=== PATIENT | male | born 1960 | race Caucasian/White ===

== ENCOUNTER 2017-08-22 06:20 | Day surgery (SDC) | payer BC ==
[2017-08-22] MEDS ORDERED: Lactated Ringers 1,000 ML IV SCH (07:00)
[2017-08-22] MEDS ORDERED: Midazolam 1 MG/ML 2 ML SDV ONE (07:24)
[2017-08-22] MEDS ORDERED: Propofol 200 MG/20 ML SDV ONE ×2 (07:24→07:44)
[2017-08-22] MEDS ORDERED: fentaNYL 100 MCG/2 ML SDV ONE (07:24)
--- NOTE | 2017-08-22 12:09 | OR ---
DATE OF PROCEDURE: 08/22/2017 PREOPERATIVE DIAGNOSIS: Strong family history of colon cancer in father and mother. POSTOPERATIVE DIAGNOSES: 1. Diverticulosis. 2. Strong family history of colon cancer in father and mother. PROCEDURE: Colonoscopy to the cecum. SURGEON: Galen Henao MD. ANESTHESIA: IV anesthesia with monitored anesthesia care. INDICATION: This 57-year-old white male is here for a colonoscopy because of a strong family history of colon cancer. Both his father and mother had colon cancer. He says his last colonoscopic exam was done six years ago. I counseled him for the procedure including risks and alternatives, and he gave his informed consent to proceed. DESCRIPTION OF PROCEDURE: The patient was placed in the left lateral decubitus position. IV anesthesia was administered by the Anesthesia Service. Time-out was held. A rectal exam was performed, which was unremarkable. The flexible video Olympus colonoscope was introduced through his anus, up his rectum, and out his colon all the way to the cecum. En route, we saw a single diverticulum in the left colon. Once the cecum was reached, the scope was slowly withdrawn, examining the mucosa throughout. No additional mucosal abnormalities were noted. No neoplastic lesions were seen. The scope was retroflexed in the rectum with the distal rectum appearing unremarkable. The scope was straightened and removed. He tolerated the procedure well. Galen Henao MD /[id number] MTDD
== END 2017-08-22 08:57 | disposition home or self-care (01) ==
LOC: JP.SDS 06:20
PROVIDERS: ATTEND Surgery
DX: Z12.11 Encounter for screening for malignant neoplasm of colon (principal); K57.30 Diverticulosis of large intestine without perforation or abscess without bleeding; Z80.0 Family history of malignant neoplasm of digestive organs
CPT/HCPCS: 45378; J2250; J2704; J3010; J7120

== ENCOUNTER 2021-03-10 04:59 | Emergency (ER) | payer BC ==
--- NOTE | 2021-03-10 05:39 | EDM.PDOC ---
ED HPI GENERAL MEDICAL PROBLEM - General Chief Complaint: Genitourinary Problem Stated Complaint: BLADDER PROBLEMS Time Seen by Provider: 03/10/21 05:10 Source of Information: Reports: Patient History Limitations: Reports: No Limitations - History of Present Illness INITIAL COMMENTS - FREE TEXT/NARRATIVE: Patient presents emergency room today secondary to inability to void and pelvic pain bladder spasms pressure. Patient states that symptoms started around 1 30- 2 30 this morning he had a urge to go at least 8 times that he knows of but he could not to try to take a hot bath around 230 to see if that helps around 330 he went to bed but was only able to sleep for about an hour woke up around 430 with increasing pain inability to void so he came to the emergency room for further evaluation. Patient states that he has had an ultrasound-guided prostate biopsy yesterday he has had 3 previous to this without any problem no history of a cancer diagnosis he states that he has been followed by urology regarding this situation he had MRI in January which found some nodules and finally decided on the prostate biopsy he is followed by Dr. Kaushik Borrero urology in [place] with [facility] he rates pain is a 10 out of 10 sharp spasms in nature. He states prior to 130 he is not sure how much she was voiding but at least he was able to void. 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: Other (see below) (hot bath, taking levofloxicin for UTI prophalaxis 2/2 prostate biopsy yesterday) Bladder Pain Score (Numeric/FACES): 10 - Related Data Allergies Allergy/AdvReac Type Severity Reaction Status Date / Time No Known Allergies Allergy Verified 03/10/21 05:25 Home Meds: Home Meds atorvaSTATin [Lipitor] 20 mg PO DAILY 08/18/17 [History] Levofloxacin 500 mg PO DAILY 03/10/21 [History] Past Medical History HEENT History: Reports: Impaired Vision Other HEENT History: Wears glasses Cardiovascular History: Reports: High Cholesterol Genitourinary History: Reports: Other (See Below) Other Genitourinary History: Has had elevated PSA, 3 biopsy's done. Musculoskeletal History: Reports: Other (See Below) Other Musculoskeletal History: L knee pain- cortisone injection - Infectious Disease History Infectious Disease History: Reports: Chicken Pox, Measles, Mumps - Past Surgical History GI Surgical History: Reports: Colonoscopy Male Surgical History: Reports: Prostate Biopsy Social & Family History - Tobacco Use Tobacco Use Status *Q: Never Tobacco User - Caffeine Use Caffeine Use: Reports: Tea - Recreational Drug Use Recreational Drug Use: No ED ROS GENERAL - Review of Systems Review Of Systems: Comprehensive ROS is negative, except as noted in HPI. Constitutional: Reports: No Symptoms. Denies: Fever, Chills GI/Abdominal: Reports: Abdominal Pain. Denies: Nausea, Vomiting : Reports: Frequency, Pain, Urinary Retention ED EXAM, RENAL/ - Physical Exam Exam: See Below Exam Limited By: No Limitations General Appearance: Alert, WD/WN, Moderate Distress Eye Exam: Bilateral Eye: EOMI, Normal Inspection Ears: Normal External Exam, Hearing Grossly Normal Throat/Mouth: Normal Voice, No Airway Compromise Head: Atraumatic, Normocephalic Neck: Supple, Full Range of Motion Respiratory/Chest: Lungs Clear, Normal Breath Sounds Cardiovascular: Regular Rate, Rhythm, No Edema, No Murmur GI/Abdominal: Normal Bowel Sounds, Soft, Non-Tender (post morales insertion for acute urinary retension) (Male) Exam: Normal Inspection, Circumcised Rectal (Males) Exam: Deferred Back Exam: Normal Inspection Extremities: Normal Inspection, Normal Range of Motion, No Pedal Edema, Normal Capillary Refill Neurological: Alert, Oriented, Normal Cognition, No Motor/Sensory Deficits Psychiatric: Normal Affect, Normal Mood Skin Exam: Warm, Dry, Intact, Normal Color Course - Vital Signs Text/Narrative:: Discussed with patient and spouse at bedside today's ER findings to include home care that will involve continuation of Morales catheter that was placed here in the emergency room did discuss large bag versus leg bag use. Recommendation is to contact urologist in the morning for urology follow-up anticipate that Morales will remain in place for approximately 1 week in duration before attempted removal is recommended. We will provide him with Pyridium for bladder spasms/discomfort although he states he is quite comfortable now I did encourage that he go ahead and take prescription in case he needs it at a future time. Work excuse was given this time patient is ready for discharge Last Recorded V/S: Last Vital Signs Temp 98.2 F 03/10/21 05:21 Pulse 73 03/10/21 05:21 Resp 18 12 05:21 BP 138/77 03/10/21 05:21 Pulse Ox 98 03/10/21 05:21 Departure - Departure Time of Disposition: 05:42 Disposition: DC/Tfer to Hospice - Home 50 Condition: Good Clinical Impression: Acute urinary retention, History of prostate biopsy - Discharge Information *PRESCRIPTION DRUG MONITORING PROGRAM REVIEWED*: Not Applicable *COPY OF PRESCRIPTION DRUG MONITORING REPORT IN PATIENT REMA: Not Applicable Instructions: Acute Urinary Retention, Male, [id number], Indwelling Urinary Catheter Care, Adult, [id number] Referrals: Pipe Harp MD [Primary Care Provider] - Additional Instructions: As discussed it is recommended that you contact your urologist today regarding imtiaz's ER visit to notify them of diagnosis of acute urinary retention and placement of Morales catheter. Continue with levofloxacin as currently prescribed no changes have been made in the emergency room regarding this antibiotic You have been provided a prescription for Pyridium which is a bladder anesthetic this will help with any bladder spasms or pain you may have related to Morales catheter insertion. You may use 1 tablet every 8 hours as needed for bladder pain/spasms. Please note that will change her urine to an orange color this does stain permanently Home Morales care as directed by PHLEBOTOMIST as well as handout provided you may shower normally Morales in place Sepsis Event Note (ED) - Evaluation Sepsis Screening Result: No Definite Risk - Focused Exam Vital Signs: Vital Signs Temp Pulse Resp BP Pulse Ox 03/10/21 05:21 98.2 F 73 18 138/77 98
[2021-03-10] MEDS ORDERED: Phenazopyridine 95 MG Tab PO ONE (05:48)
== END 2021-03-10 06:24 | disposition home or self-care (01) ==
LOC: JP.ED 04:59
DX: R33.9 Retention of urine, unspecified (principal); E78.00 Pure hypercholesterolemia, unspecified; Z79.899 Other long term (current) drug therapy
CPT/HCPCS: 51702; 99284; A9270

== ENCOUNTER 2021-03-16 20:44 | Observation (INO) | payer BC ==
[2021-03-16] MEDS ORDERED: Sodium Chloride 0.9% 10 ML Syringe FLUSH PRN (21:21)
[2021-03-16] MEDS ORDERED: Lactated Ringers 1,000 ML IV SCH ×2 (21:30→23:45)
--- NOTE | 2021-03-16 22:16 | EDM.PDOC ---
ED HPI GENERAL MEDICAL PROBLEM - General Chief Complaint: General Stated Complaint: POST BIOSPY, BLADDER INFECTION,FEVER Time Seen by Provider: 03/16/21 21:21 Source of Information: Reports: Patient History Limitations: Reports: No Limitations - History of Present Illness INITIAL COMMENTS - FREE TEXT/NARRATIVE: Kwasi is a 60-year-old male presenting to the ED for evaluation of febrile illness, nausea, diarrhea, and generally not feeling well. The patient underwent a prostate biopsy in [place] 7 days ago complicated by urinary retention which he was seen for the next morning he in the emergency room here. A Woody catheter was inserted to allow for drainage of the urine which remained in place until the patient followed up with the urologist this past Tuesday (3 days ago). At that time the urologist remove the catheter and the patient was able to void without difficulty. The urologist started the patient on Flomax. The patient was in his usual state of health until this morning when he awoke with fever of 103 F, nausea, and diarrhea. The patient states that he has had loose stools since having the biopsy but today has just been watery diarrhea. His has been trying to manage his fever at home with Tylenol and ibuprofen, however, he still having significant breakthrough prompting him to come in for evaluation. - Related Data Allergies Allergy/AdvReac Type Severity Reaction Status Date / Time No Known Allergies Allergy Verified 03/16/21 21:17 Home Meds: Home Meds atorvaSTATin [Lipitor] 20 mg PO DAILY 08/18/17 [History] Levofloxacin 500 mg PO DAILY 03/10/21 [History] Past Medical History HEENT History: Reports: Impaired Vision Other HEENT History: Wears glasses Cardiovascular History: Reports: High Cholesterol Genitourinary History: Reports: Other (See Below) Other Genitourinary History: Has had elevated PSA, 3 biopsy's done. Musculoskeletal History: Reports: Other (See Below) Other Musculoskeletal History: L knee pain- cortisone injection - Infectious Disease History Infectious Disease History: Reports: Chicken Pox, Measles, Mumps - Past Surgical History GI Surgical History: Reports: Colonoscopy Male Surgical History: Reports: Prostate Biopsy Social & Family History - Tobacco Use Tobacco Use Status *Q: Never Tobacco User - Caffeine Use Caffeine Use: Reports: Tea - Recreational Drug Use Recreational Drug Use: No ED ROS GENERAL - Review of Systems Review Of Systems: See Below Constitutional: Reports: Fever, Chills, Weakness HEENT: Reports: No Symptoms Respiratory: Reports: No Symptoms Cardiovascular: Reports: No Symptoms Endocrine: Reports: Fatigue GI/Abdominal: Reports: Abdominal Pain, Diarrhea (The patient has been having loose stools since having his prostate biopsy 1 week ago but developed flagrant diarrhea this morning.), Nausea, Vomiting : Reports: No Symptoms Musculoskeletal: Reports: No Symptoms Skin: Reports: No Symptoms Neurological: Reports: No Symptoms Psychiatric: Reports: No Symptoms Hematologic/Lymphatic: Reports: No Symptoms Immunologic: Reports: No Symptoms ED EXAM, GENERAL - Physical Exam Exam: See Below Exam Limited By: No Limitations General Appearance: Alert, Anxious, Mild Distress Eye Exam: Bilateral Eye: EOMI, PERRL Throat/Mouth: Normal Inspection, Normal Oropharynx, Normal Voice, No Airway Compromise Head: Atraumatic, Normocephalic Neck: Normal Inspection, Supple Respiratory/Chest: No Respiratory Distress, Lungs Clear, Normal Breath Sounds Cardiovascular: Normal Peripheral Pulses, Regular Rate, Rhythm, No Murmur Peripheral Pulses: 2+: Radial (L), Radial (R) GI/Abdominal: Soft, No Distention, Tender (Diffusely mildly tender), Abnormal Bowel Sounds (Increased bowel sounds). No: Guarding, Rebound Extremities: Normal Inspection, No Pedal Edema Neurological: Alert, Oriented, Normal Cognition, No Motor/Sensory Deficits Psychiatric: Normal Affect, Normal Mood Skin Exam: Warm, Dry Course - Vital Signs Last Recorded V/S: Last Vital Signs Temp 37.1 C 03/16/21 23:25 Pulse 96 03/16/21 23:21 Resp 20 03/16/21 23:06 BP 100/53 L 03/16/21 23:21 Pulse Ox 97 03/16/21 23:21 - Orders/Labs/Meds Orders: Active Orders 24 hr Category Date Time Status Blood Pressure Mgt: Sepsis [RC] Q15MX2 Care 03/16/21 21:22 Active Pulse Oximetry [RC] ROUTINE Care 03/16/21 21:22 Active Chest 1V Frontal [CR] Stat Exams 03/16/21 21:21 Taken CULTURE BLOOD [BC] Urgent Lab 03/16/21 21:10 Received CULTURE BLOOD [BC] Urgent Lab 03/16/21 21:35 Received CULTURE STOOL + SHIGATOX [RM] Stat Lab 03/16/21 23:44 Ordered CULTURE URINE [RM] Stat Lab 03/16/21 21:21 Ordered UA W/MICROSCOPIC [URIN] Stat Lab 03/16/21 21:21 Ordered Iopamidol [Isovue-300 (61%)] Med 03/16/21 22:45 Active 146 ml IV . DIRECTED Lactated Ringers [Ringers, Lactated] 1,000 ml Med 03/16/21 21:30 Active IV ASDIRECTED Lactated Ringers [Ringers, Lactated] 1,000 ml Med 03/16/21 23:45 Active IV ASDIRECTED Sodium Chloride 0.9% [Normal Saline] 80 ml Med 03/16/21 22:45 Active IV ASDIRECTED Sodium Chloride 0.9% [Saline Flush] Med 03/16/21 21:21 Active 10 ml FLUSH ASDIRECTED PRN Blood Culture x2 Reflex Set [OM.PC] Urgent Oth 03/16/21 21:21 Ordered Isolation [COMM] Stat Ot 03/16/21 21:24 Ordered Saline Lock Insert [OM.PC] Stat Ot 03/16/21 21:21 Ordered Severe Sepsis Onset Time [OM.PC] Stat Ot 03/16/21 21:21 Ordered Medication Orders Lactated Ringer's (Ringers, Lactated) 1,000 mls @ 999 mls/hr IV ASDIRECTED [facility] Last Admin: 03/16/21 21:38 Dose: 999 mls/hr Documented by: ROZ Sodium Chloride (Normal Saline) 80 mls @ 3 mls/sec IV ASDIRECTED MELANIA Last Admin: 03/16/21 22:48 Dose: 3 mls/sec Documented by: JUANITA Lactated Ringer's (Ringers, Lactated) 1,000 mls @ 500 mls/hr IV ASDIRECTED MELANIA Iopamidol (Iopamidol 612 Mg/Ml 150 Ml Bottle) 146 ml IV . DIRECTED [facility] Last Admin: 03/16/21 22:48 Dose: 146 ml Documented by: JUANITA Sodium Chloride (Sodium Chloride 0.9% 10 Ml Syringe) 10 ml FLUSH ASDIRECTED PRN PRN Reason: Keep Vein Open Last Admin: 03/16/21 21:55 Dose: 10 ml Documented by: ROZ Labs: Laboratory Tests 12/13/21 12/13/21 12/13/21 Range/Units 21:10 21:10 21:10 WBC 14.6 H (4.5-11.0) K/uL RBC 4.16 L (4.30-5.90) M/uL Hgb 13.5 (12.0-15.0) g/dL Hct 38.6 L (40.0-54.0) % MCV 93 (80-98) fL MCH 33 H (27-31) pg MCHC 35 (32-36) % Plt Count 172 (150-400) K/uL Neut % (Auto) 92.6 H (36-66) % Lymph % (Auto) 3.8 L (24-44) % [place] % (Auto) 3.5 (2-6) % Eos % (Auto) 0.0 L (2-4) % Baso % (Auto) 0.1 (0-1) % Sodium 136 L (140-148) mmol/L Potassium 3.5 L (3.6-5.2) mmol/L Chloride 102 (100-108) mmol/L Carbon Dioxide 22 (21-32) mmol/L Anion Gap 15.5 H (5.0-14.0) mmol/L BUN 21 H (7-18) mg/dL Creatinine 1.7 H (0.8-1.3) mg/dL Est Cr Clr Drug Dosing 57.44 mL/min Estimated GFR (MDRD) 41 L (>60) Glucose 125 H (74-106) mg/dL Lactic Acid 1.6 (0.4-2.0) mmol/L Calcium 8.4 L (8.5-10.1) mg/dL Total Bilirubin 1.5 H D (0.2-1.0) mg/dL AST 17 (15-37) U/L ALT 18 (12-78) U/L Alkaline Phosphatase 48 (46-116) U/L C-Reactive Protein 4.86 H (0.0-0.3) mg/dL Total Protein 6.4 (6.4-8.2) g/dL Albumin 3.3 L (3.4-5.0) g/dL Globulin 3.1 (2.3-3.5) g/dL Albumin/Globulin Ratio 1.1 L (1.2-2.2) Influenza Type A RNA (NEGATIVE) RSV RNA (INAAT) (NEGATIVE) Influenza Type B RNA (NEGATIVE) SARS-CoV-2 RNA (MAYE) (NEGATIVE) 03/16/21 Range/Units 21:41 WBC (4.5-11.0) K/uL RBC (4.30-5.90) M/uL Hgb (12.0-15.0) g/dL Hct (40.0-54.0) % MCV (80-98) fL MCH (27-31) pg MCHC (32-36) % Plt Count (150-400) K/uL Neut % (Auto) (36-66) % Lymph % (Auto) (24-44) % [place] % (Auto) (2-6) % Eos % (Auto) (2-4) % Baso % (Auto) (0-1) % Sodium (140-148) mmol/L Potassium (3.6-5.2) mmol/L Chloride (100-108) mmol/L Carbon Dioxide (21-32) mmol/L Anion Gap (5.0-14.0) mmol/L BUN (7-18) mg/dL Creatinine (0.8-1.3) mg/dL Est Cr Clr Drug Dosing mL/min Estimated GFR (MDRD) (>60) Glucose (74-106) mg/dL Lactic Acid (0.4-2.0) mmol/L Calcium (8.5-10.1) mg/dL Total Bilirubin (0.2-1.0) mg/dL AST (15-37) U/L ALT (12-78) U/L Alkaline Phosphatase (46-116) U/L C-Reactive Protein (0.0-0.3) mg/dL Total Protein (6.4-8.2) g/dL Albumin (3.4-5.0) g/dL Globulin (2.3-3.5) g/dL Albumin/Globulin Ratio (1.2-2.2) Influenza Type A RNA Negative (NEGATIVE) RSV RNA (INAAT) Negative (NEGATIVE) Influenza Type B RNA Negative (NEGATIVE) SARS-CoV-2 RNA (MAYE) Negative (NEGATIVE) Meds: Medications Generic Name Dose Route Start Last Admin Trade Name Freq PRN Reason Stop Dose Admin Lactated Ringer's 1,000 mls @ 999 mls/hr 03/16/21 21:30 03/16/21 21:38 Ringers, Lactated IV 999 mls/hr ASDIRECTED MELANIA Administration Sodium Chloride 80 mls @ 3 mls/sec 03/16/21 22:45 03/16/21 22:48 Normal Saline IV 3 mls/sec ASDIRECTED MELANIA Administration Lactated Ringer's 1,000 mls @ 500 mls/hr 03/16/21 23:45 Ringers, Lactated IV ASDIRECTED MELANIA Iopamidol 146 ml 03/16/21 22:45 03/16/21 22:48 Iopamidol 612 Mg/Ml 150 Ml Bottle IV 146 ml . DIRECTED MELANIA Administration Sodium Chloride 10 ml 03/16/21 21:21 03/16/21 21:55 Sodium Chloride 0.9% 10 Ml Syringe FLUSH 10 ml ASDIRECTED PRN Administration Keep Vein Open Discontinued Medications Generic Name Dose Route Start Last Admin Trade Name Freq PRN Reason Stop Dose Admin Cefepime HCl Confirm 03/16/21 23:26 03/16/21 23:43 Cefepime 1 Gm Vial Administered 03/16/21 23:27 2 gm Dose Administration 2 gm .ROUTE .STK-MED ONE Cefepime HCl 2 gm/ Sodium 50 mls @ 100 mls/hr 03/16/21 22:59 03/16/21 23:59 Chloride IV 03/16/21 23:28 100 mls/hr ONETIME ONE Administration Sodium Chloride Confirm 03/16/21 23:27 Normal Saline Administered 03/16/21 23:28 Dose 50 mls @ as directed .ROUTE .STK-MED ONE Ibuprofen 400 mg 03/16/21 22:56 03/16/21 23:04 Ibuprofen 400 Mg Tab PO 03/16/21 22:57 400 mg ONETIME ONE Administration - Radiology Interpretation Free Text/Narrative:: I reviewed the images of the CT of the abdomen and pelvis with contrast as well as the report. The report is as follows: FINDINGS: Lower chest: Unremarkable. Liver: Unremarkable. Normal in size and attenuation. No suspicious masses. Gallbladder and bile ducts: Unremarkable. No stones or inflammation. No biliary dilation. Pancreas: Unremarkable. No mass or inflammation. Spleen: Unremarkable. Normal in size. No masses. Adrenal glands: Unremarkable. No nodules. Kidneys: Unremarkable. No suspicious masses, stones, or hydronephrosis. GI tract: Small bowel loops are normal in caliber. The colon is incompletely distended and shows mucosal thickening and hyperemia, with areas of adjacent mesenteric stranding. Vasculature: Unremarkable. Mesenteric arteries are patent. Lymph nodes: No lymphadenopathy. Omentum/Peritoneum/Abdominal Wall: Unremarkable. No sign of mass or infiltration. No free air or significant free fluid. Pelvis: The prostate gland is enlarged and heterogeneous. The bladder is incompletely distended. Bones: Unremarkable for age. IMPRESSION: Mucosal regularity of the colon is suggestive of colitis, most likely infectious. Inflammatory causes are also possible. Ischemia is unlikely. Please note that all CT scans at this facility use dose modulation, iterative reconstruction, and/or weight-based dosing when appropriate to reduce radiation dose to as low as reasonably achievable. Dictated by Hira Cook MD @ 03/16/2021 11:14:17 PM - Re-Assessments/Exams Free Text/Narrative Re-Assessment/Exam: 03/16/21 23:38 I reviewed Kwasi's labs showing a leukocytosis of 14.6 with a hemoglobin of 13.5 and a platelet count of 172,000. The patient's comprehensive metabolic panel was significant for sodium 136, potassium 3.5, chloride 102, bicarbonate of 22, BUN of 21 with a creatinine 1.7 creating a calculated GFR of 41. The glucose is 125. His albumin is only 3.3 with a calcium of 8.4. His AST, ALT, and alkaline phosphatase are all normal pillar his bilirubin is elevated at 1.5. Venous lactate is 1.6 and C-reactive protein is 4.86. Because of the elevation in his leukocyte count and bilirubin compounded by diarrhea, we proceeded with a CT of the abdomen and pelvis with contrast. This demonstrated acute colitis with mucosal thickening and hyperemia associated with adjacent mesenteric stranding. This is likely the cause for his fever and diarrhea. We initiated therapy with cefepime 2 g IV while awaiting the work-up as he presented as a concern for sepsis. Blood cultures have been drawn as well as urine culture. Stool cultures will be obtained. As the patient presents with a fever of 103.5 F, we initiated empiric antibiotic therapy and will hospitalize the patient. He is still at fairly high risk for developing sepsis. I discussed the case with Tess Sun CNP to arrange for admission of the patient. Departure - Departure Time of Disposition: 23:48 Disposition: Admitted As Inpatient 67 Clinical Impression: Infectious colitis - Discharge Information Referrals: Pipe Harp MD [Primary Care Provider] - Forms: ED Department Discharge Sepsis Event Note (ED) - Focused Exam Vital Signs: Vital Signs Temp Pulse Resp BP Pulse Ox 03/16/21 23:25 37.1 C 03/16/21 23:21 96 100/53 L 97 03/16/21 23:06 96 20 115/71 99 03/16/21 21:40 103/59 L 03/16/21 21:27 37.0 C 65 16 100/54 L 97 - Problem List & Annotations (1) Infectious colitis SNOMED Code(s): 81557703 Code(s): A09 - INFECTIOUS GASTROENTERITIS AND COLITIS, UNSPECIFIED Status: Acute Priority: High Current Visit: Yes - Problem List Review Problem List Initiated/Reviewed/Updated: Yes - My Orders Last 24 Hours: My Active Orders 03/16/21 21:10 CULTURE BLOOD [BC] Urgent 03/16/21 21:21 Chest 1V Frontal [CR] Stat CULTURE URINE [RM] Stat UA W/MICROSCOPIC [URIN] Stat Sodium Chloride 0.9% [Saline Flush] 10 ml FLUSH ASDIRECTED PRN Blood Culture x2 Reflex Set [OM.PC] Urgent Saline Lock Insert [OM.PC] Stat Severe Sepsis Onset Time [OM.PC] Stat 03/16/21 21:22 Blood Pressure Mgt: Sepsis [RC] Q15MX2 Pulse Oximetry [RC] ROUTINE 03/16/21 21:24 Isolation [COMM] Stat 03/16/21 21:30 Lactated Ringers [Ringers, Lactated] 1,000 ml IV ASDIRECTED 03/16/21 21:35 CULTURE BLOOD [BC] Urgent 03/16/21 22:45 Iopamidol [Isovue-300 (61%)] 146 ml IV . DIRECTED Sodium Chloride 0.9% [Normal Saline] 80 ml IV ASDIRECTED 03/16/21 23:44 CULTURE STOOL + SHIGATOX [RM] Stat 03/16/21 23:45 Lactated Ringers [Ringers, Lactated] 1,000 ml IV ASDIRECTED - Assessment/Plan Last 24 Hours: My Active Orders 03/16/21 21:10 CULTURE BLOOD [BC] Urgent 03/16/21 21:21 Chest 1V Frontal [CR] Stat CULTURE URINE [RM] Stat UA W/MICROSCOPIC [URIN] Stat Sodium Chloride 0.9% [Saline Flush] 10 ml FLUSH ASDIRECTED PRN Blood Culture x2 Reflex Set [OM.PC] Urgent Saline Lock Insert [OM.PC] Stat Severe Sepsis Onset Time [OM.PC] Stat 03/16/21 21:22 Blood Pressure Mgt: Sepsis [RC] Q15MX2 Pulse Oximetry [RC] ROUTINE 03/16/21 21:24 Isolation [COMM] Stat 03/16/21 21:30 Lactated Ringers [Ringers, Lactated] 1,000 ml IV ASDIRECTED 03/16/21 21:35 CULTURE BLOOD [BC] Urgent 03/16/21 22:45 Iopamidol [Isovue-300 (61%)] 146 ml IV . DIRECTED Sodium Chloride 0.9% [Normal Saline] 80 ml IV ASDIRECTED 03/16/21 23:44 CULTURE STOOL + SHIGATOX [RM] Stat 03/16/21 23:45 Lactated Ringers [Ringers, Lactated] 1,000 ml IV ASDIRECTED
[2021-03-16 22:25] LABS: CORONAVIRUS COVID-19 NAA NEGATIVE (NEGATIVE)
[2021-03-16] MEDS ORDERED: Sodium Chloride 0.9% 80 ML IV SCH (22:45)
[2021-03-16] MEDS ORDERED: Iopamidol 612 MG/ML 150 ML Bottle IV SCH (22:45)
[2021-03-16] MEDS ORDERED: Ibuprofen 400 MG Tab PO ONE (22:56)
[2021-03-16] MEDS ORDERED: Cefepime 2 GM in Sodium Chloride 0.9% 50 ML IV ONE (22:59)
--- NOTE | 2021-03-16 23:16 | CRLCT ---
For Patients: As a result of the Century Cures Act, medical imaging exams and procedure reports are released immediately into your electronic medical record. You may view this report before your referring provider. If you have questions, please contact your health care provider. INDICATION: Diarrhea. TECHNIQUE: CT abdomen and pelvis acquired with 146 cc Isovue-300 IV contrast. COMPARISON: None. FINDINGS: Lower chest: Unremarkable. Liver: Unremarkable. Normal in size and attenuation. No suspicious masses. Gallbladder and bile ducts: Unremarkable. No stones or inflammation. No biliary dilation. Pancreas: Unremarkable. No mass or inflammation. Spleen: Unremarkable. Normal in size. No masses. Adrenal glands: Unremarkable. No nodules. Kidneys: Unremarkable. No suspicious masses, stones, or hydronephrosis. GI tract: Small bowel loops are normal in caliber. The colon is incompletely distended and shows mucosal thickening and hyperemia, with areas of adjacent mesenteric stranding. Vasculature: Unremarkable. Mesenteric arteries are patent. Lymph nodes: No lymphadenopathy. Omentum/Peritoneum/Abdominal Wall: Unremarkable. No sign of mass or infiltration. No free air or significant free fluid. Pelvis: The prostate gland is enlarged and heterogeneous. The bladder is incompletely distended. Bones: Unremarkable for age. IMPRESSION: Mucosal regularity of the colon is suggestive of colitis, most likely infectious. Inflammatory causes are also possible. Ischemia is unlikely. Please note that all CT scans at this facility use dose modulation, iterative reconstruction, and/or weight-based dosing when appropriate to reduce radiation dose to as low as reasonably achievable. Dictated by Hira Cook MD @ 03/16/2021 11:14:17 PM (Electronically Signed)
[2021-03-16] MEDS ORDERED: Sodium Chloride 0.9% 50 ML ONE (23:27)
[2021-03-16] MEDS: Cefepime 1 GM Vial ONE (23:43)
--- NOTE | 2021-03-17 00:22 | PCM.HP.2 ---
H&P History of Present Illness - General Date of Service: 03/16/21 Admit Problem/Dx: Admission Diagnosis/Problem Admission Diagnosis/Problem Colitis presumed to be due to infection Source of Information: Patient, Provider, RN History Limitations: Reports: No Limitations - History of Present Illness Initial Comments - Free Text/Narative: chief complaint: fever and chills. - History of Present Illness from ER note INITIAL COMMENTS - FREE TEXT/NARRATIVE: Kwasi is a 60-year-old male presenting to the ED for evaluation of febrile illness, nausea, diarrhea, and generally not feeling well. The patient underwent a prostate biopsy in [place] 7 days ago complicated by urinary retention which he was seen for the next morning he in the emergency room here. A Morales catheter was inserted to allow for drainage of the urine which remained in place until the patient followed up with the urologist this past Tuesday (3 days ago). At that time the urologist remove the catheter and the patient was able to void without difficulty. The urologist started the patient on Flomax. The patient was in his usual state of health until this morning when he awoke with fever of 103 F, nausea, and diarrhea. The patient states that he has had loose stools since having the biopsy but today has just been watery diarrhea. His has been trying to manage his fever at home with Tylenol and ibuprofen, however, he still having significant breakthrough prompting him to come in for evaluation. Onset of Symptoms: Reports: Today, Sudden Duration of Symptoms: Reports: Hour(s):, Getting Worse Location: Reports: Generalized Quality: Reports: Ache (low back) Severity: Moderate Improves with: Reports: Rest Worsens with: Reports: Movement Context: Reports: Other (Prostate bx 7 days ago, morales cath removed 3 days ago. fever today) Associated Symptoms: Reports: Fever/Chills, Loss of Appetite, Nausea/Vomiting - Related Data Allergies/Adverse Reactions: Allergies Allergy/AdvReac Type Severity Reaction Status Date / Time No Known Allergies Allergy Verified 03/16/21 21:17 Home Medications: Home Meds atorvaSTATin [Lipitor] 20 mg PO DAILY 08/18/17 [History] Levofloxacin 500 mg PO DAILY 03/10/21 [History] Past Medical History HEENT History: Reports: Impaired Vision Other HEENT History: Wears glasses Cardiovascular History: Reports: High Cholesterol Genitourinary History: Reports: Other (See Below) Other Genitourinary History: Has had elevated PSA, 3 biopsy's done. Musculoskeletal History: Reports: Other (See Below) Other Musculoskeletal History: L knee pain- cortisone injection - Infectious Disease History Infectious Disease History: Reports: Chicken Pox, Measles, Mumps - Past Surgical History GI Surgical History: Reports: Colonoscopy Male Surgical History: Reports: Prostate Biopsy Social & Family History - Tobacco Use Tobacco Use Status *Q: Never Tobacco User - Caffeine Use Caffeine Use: Reports: Tea - Recreational Drug Use Recreational Drug Use: No - Living Situation & Occupation Living situation: Reports: Occupation: Employed (lives with , [place] of [place], [place]. [employer] at [employer] [employer] [employer] H&P Review of Systems - Review of Systems: Review Of Systems: See Below General: Reports: Fever, Chills, Malaise, Fatigue, Decreased Appetite (last meal this morning- ate oranges), Other (has been sick with prostate problems) HEENT: Reports: Glasses Pulmonary: Reports: No Symptoms Cardiovascular: Reports: No Symptoms Gastrointestinal: Reports: Abdominal Pain, Diarrhea, Decreased Appetite, Nausea, Vomiting Genitourinary: Reports: Pain (low back pain) Musculoskeletal: Reports: Back Pain (low back pain) Skin: Reports: No Symptoms Psychiatric: Reports: Anxiety Hematologic/Lymphatic: Reports: No Symptoms Immunologic: Reports: No Symptoms Exam - Exam Exam: See Below - Vital Signs Vital Signs: Last Vital Signs Temp 98.8 F 03/16/21 23:25 Pulse 96 03/16/21 23:21 Resp 20 03/16/21 23:06 BP 100/53 L 03/16/21 23:21 Pulse Ox 97 03/16/21 23:21 Weight: 214 lb 11.684 oz - Exam Quality Assessment: DVT Prophylaxis General: Alert, Oriented, Cooperative, Mild Distress HEENT: PERRLA, Conjunctiva Clear, EACs Clear, EOMI, Hearing Intact, Mucosa Moist & [place], Nares Patent, Normal Nasal Septum Neck: Supple, Trachea Midline, Full Range of Motion Lungs: Clear to Auscultation, Normal Respiratory Effort Cardiovascular: Regular Rate, Regular Rhythm, Normal S1, Normal S2 GI/Abdominal Exam: Normal Bowel Sounds, Soft, No Distention, No Abnormal Bruit, No Mass, Pelvis Stable, Tender (generalized) (Male) Exam: Deferred Rectal (Males) Exam: Deferred Back Exam: Full Range of Motion Extremities: Normal Inspection, Normal Range of Motion, Non-Tender, No Pedal Edema, Normal Capillary Refill Peripheral Pulses: 2+: Radial (L), Radial (R), Dorsalis Pedis (L), Dorsalis Pedis (R) Skin: Warm, Dry, Intact Neurological: Strength Equal Bilateral, Normal Speech, Normal Tone Neuro Extensive - Mental Status: Alert, Oriented x3, Normal Mood/Affect, Normal Cognition Psychiatric: Alert, Anxious - Patient Data Lab Results Last 24 hrs: Laboratory Results - last 24 hr 03/16/21 03/16/21 03/16/21 Range/Units 21:10 21:10 21:10 WBC 14.6 H (4.5-11.0) K/uL RBC 4.16 L (4.30-5.90) M/uL Hgb 13.5 (12.0-15.0) g/dL Hct 38.6 L (40.0-54.0) % MCV 93 (80-98) fL MCH 33 H (27-31) pg MCHC 35 (32-36) % Plt Count 172 (150-400) K/uL Neut % (Auto) 92.6 H (36-66) % Lymph % (Auto) 3.8 L (24-44) % [place] % (Auto) 3.5 (2-6) % Eos % (Auto) 0.0 L (2-4) % Baso % (Auto) 0.1 (0-1) % Sodium 136 L (140-148) mmol/L Potassium 3.5 L (3.6-5.2) mmol/L Chloride 102 (100-108) mmol/L Carbon Dioxide 22 (21-32) mmol/L Anion Gap 15.5 H (5.0-14.0) mmol/L BUN 21 H (7-18) mg/dL Creatinine 1.7 H (0.8-1.3) mg/dL Est Cr Clr Drug Dosing 57.44 mL/min Estimated GFR (MDRD) 41 L (>60) Glucose 125 H (74-106) mg/dL Lactic Acid 1.6 (0.4-2.0) mmol/L Calcium 8.4 L (8.5-10.1) mg/dL Total Bilirubin 1.5 H D (0.2-1.0) mg/dL AST 17 (15-37) U/L ALT 18 (12-78) U/L Alkaline Phosphatase 48 (46-116) U/L C-Reactive Protein 4.86 H (0.0-0.3) mg/dL Total Protein 6.4 (6.4-8.2) g/dL Albumin 3.3 L (3.4-5.0) g/dL Globulin 3.1 (2.3-3.5) g/dL Albumin/Globulin Ratio 1.1 L (1.2-2.2) Influenza Type A RNA (NEGATIVE) RSV RNA (INAAT) (NEGATIVE) Influenza Type B RNA (NEGATIVE) SARS-CoV-2 RNA (MAYE) (NEGATIVE) 03/16/21 Range/Units 21:41 WBC (4.5-11.0) K/uL RBC (4.30-5.90) M/uL Hgb (12.0-15.0) g/dL Hct (40.0-54.0) % MCV (80-98) fL MCH (27-31) pg MCHC (32-36) % Plt Count (150-400) K/uL Neut % (Auto) (36-66) % Lymph % (Auto) (24-44) % [place] % (Auto) (2-6) % Eos % (Auto) (2-4) % Baso % (Auto) (0-1) % Sodium (140-148) mmol/L Potassium (3.6-5.2) mmol/L Chloride (100-108) mmol/L Carbon Dioxide (21-32) mmol/L Anion Gap (5.0-14.0) mmol/L BUN (7-18) mg/dL Creatinine (0.8-1.3) mg/dL Est Cr Clr Drug Dosing mL/min Estimated GFR (MDRD) (>60) Glucose (74-106) mg/dL Lactic Acid (0.4-2.0) mmol/L Calcium (8.5-10.1) mg/dL Total Bilirubin (0.2-1.0) mg/dL AST (15-37) U/L ALT (12-78) U/L Alkaline Phosphatase (46-116) U/L C-Reactive Protein (0.0-0.3) mg/dL Total Protein (6.4-8.2) g/dL Albumin (3.4-5.0) g/dL Globulin (2.3-3.5) g/dL Albumin/Globulin Ratio (1.2-2.2) Influenza Type A RNA Negative (NEGATIVE) RSV RNA (INAAT) Negative (NEGATIVE) Influenza Type B RNA Negative (NEGATIVE) SARS-CoV-2 RNA (MAYE) Negative (NEGATIVE) Result Diagrams: 03/16/21 21:10 03/16/21 21:10 Sepsis Event Note - Focused Exam Vital Signs: Vital Signs Temp Pulse Resp BP Pulse Ox 03/16/21 23:25 98.8 F 03/16/21 23:21 96 100/53 L 97 03/16/21 23:06 96 20 115/71 99 03/16/21 21:40 103/59 L 03/16/21 21:27 98.6 F 65 16 100/54 L 97 - Problem List (1) Infectious colitis SNOMED Code(s): 14521067 ICD Code: A09 - INFECTIOUS GASTROENTERITIS AND COLITIS, UNSPECIFIED Status: Acute Priority: High Current Visit: Yes (2) History of prostate biopsy SNOMED Code(s): 738411832, 884440347 ICD Code: Z98.890 - OTHER SPECIFIED POSTPROCEDURAL STATES Status: Acute Priority: High Current Visit: Yes (3) History of urinary retention SNOMED Code(s): 732322912 ICD Code: Z87.898 - PERSONAL HISTORY OF OTHER SPECIFIED CONDITIONS Status: Acute Priority: High Current Visit: Yes Problem List Initiated/Reviewed/Updated: Yes Orders Last 24hrs: Active Orders 24 hr Category Date Time Status Patient Status Manage Transfer [TRANSFER] Routine ADT 03/17/21 00:10 Ordered Blood Pressure Mgt: Sepsis [RC] [id number] Care 03/16/21 21:22 Active Pulse Oximetry [RC] ROUTINE Care 03/16/21 21:22 Active Chest 1V Frontal [CR] Stat Exams 03/16/21 21:21 Taken CULTURE BLOOD [BC] Urgent Lab 03/16/21 21:10 Received CULTURE BLOOD [BC] Urgent Lab 03/16/21 21:35 Received CULTURE STOOL + SHIGATOX [RM] Stat Lab 03/16/21 23:44 Ordered CULTURE URINE [RM] Stat Lab 03/16/21 21:21 Ordered UA W/MICROSCOPIC [URIN] Stat Lab 03/16/21 21:21 Ordered Iopamidol [Isovue-300 (61%)] Med 03/16/21 22:45 Active 146 ml IV . DIRECTED Lactated Ringers [Ringers, Lactated] 1,000 ml Med 03/16/21 21:30 Active IV ASDIRECTED Lactated Ringers [Ringers, Lactated] 1,000 ml Med 03/16/21 23:45 Active IV ASDIRECTED Sodium Chloride 0.9% [Normal Saline] 80 ml Med 03/16/21 22:45 Active IV ASDIRECTED Sodium Chloride 0.9% [Saline Flush] Med 03/16/21 21:21 Active 10 ml FLUSH ASDIRECTED PRN Blood Culture x2 Reflex Set [OM.PC] Urgent Oth 03/16/21 21:21 Ordered Isolation [COMM] Stat Ot 03/16/21 21:24 Ordered Saline Lock Insert [OM.PC] Stat Ot 03/16/21 21:21 Ordered Severe Sepsis Onset Time [OM.PC] Stat Ot 03/16/21 21:21 Ordered Resuscitation Status Routine Resus Stat 03/17/21 00:12 Ordered Medication Orders Lactated Ringer's (Ringers, Lactated) 1,000 mls @ 999 mls/hr IV ASDIRECTED [facility] Last Admin: 03/16/21 21:38 Dose: 999 mls/hr Documented by: ROZ Sodium Chloride (Normal Saline) 80 mls @ 3 mls/sec IV ASDIRECTED MELANIA Last Admin: 03/16/21 22:48 Dose: 3 mls/sec Documented by: JUANITA Lactated Ringer's (Ringers, Lactated) 1,000 mls @ 500 mls/hr IV ASDIRECTED [facility] Iopamidol (Iopamidol 612 Mg/Ml 150 Ml Bottle) 146 ml IV . DIRECTED [facility] Last Admin: 03/16/21 22:48 Dose: 146 ml Documented by: JUANITA Sodium Chloride (Sodium Chloride 0.9% 10 Ml Syringe) 10 ml FLUSH ASDIRECTED PRN PRN Reason: Keep Vein Open Last Admin: 03/16/21 21:55 Dose: 10 ml Documented by: ROZ Assessment/Plan Comment:: Assessment and Plan of Care- Colitis-infectious, history of urinary retention, history of prostate biopsy copy from ER note Kwasi is a 60-year-old male presenting to the ED for evaluation of febrile illness, nausea, diarrhea, and generally not feeling well. The patient underwent a prostate biopsy in [place] 7 days ago complicated by urinary retention which he was seen for the next morning he in the emergency room here. A Morales catheter was inserted to allow for drainage of the urine which remained in place until the patient followed up with the urologist this past Tuesday (3 days ago). At that time the urologist remove the catheter and the patient was able to void without difficulty. The urologist started the patient on Flomax. The patient was in his usual state of health until this morning when he awoke with fever of 103 F, nausea, and diarrhea. The patient states that he has had loose stools since having the biopsy but today has just been watery diarrhea. His has been trying to manage his fever at home with Tylenol and ibuprofen, however, he still having significant breakthrough prompting him to come in for evaluation. ER work-up labs WBC 14.6, hemoglobin 13.5, hemocrit 38.6, plts 172 Chemistries Na 136, K 3.5, anion gap 15.5, bun 21, creatine 1.7, glucose 125, lactic acid 1.6, crp 4.86, Covid negative , CT scan of abdomen - shows colitis will admit for IV fluids, anti-emetic, IV antibiotics and pain control and Mrs. Zhu are in agreement with plan of care. Colitis-infectious -IV fluids for hydration- Normal saline 125 ml/hr -IV Cipro 400 mg every 12 hours -IV Flagyl 500 mg every 8 hours -Medication for pain and nausea -Protonix 40 mg IV every hs -I&0 -blood cultures x2 pending -am labs CBC, BMP, CRP History of Urinary Retention - 3 days ago had Morales cath removed after having acute urinary retention. -monitor I&O -urine with microscopic pending -urine cultures pending History of Prostate biopsy 7 days ago -monitor for complications MAINTENANCE ISSUES -DVT Prophylaxis Lovenox 40 mg subcut daily -GI prophylaxis- Protonix as above -Morales catheter not indicated -Nutrition regular diet -Consult to Spiritual for prayers CODE STATUS FULL ADMISSION This patient will be admitted to observation status, expect no more than one night hospital stay for evaluation and management of problems outline above. DISPOSITION anticipate discharge to home after the hospital stay. PRIMARY CARE PROVIDER Dr. Velasquez Harp, [facility] Kalin Bailey - Mortality Measure Prognosis:: Good
[2021-03-17] MEDS ORDERED: LORazepam 1 MG Tab PO STA (00:43)
[2021-03-17] MEDS ORDERED: Ondansetron 4 MG/2 ML SDV IV PRN (01:14)
[2021-03-17] MEDS ORDERED: oxyCODONE 5 MG Tab PO PRN (01:14)
[2021-03-17] MEDS ORDERED: Ondansetron 4 MG Tab.DIS PO PRN (01:14)
[2021-03-17] MEDS ORDERED: Albuterol 0.083% 2.5 MG/3 ML Neb Soln NEB PRN (01:14)
[2021-03-17] MEDS ORDERED: Acetaminophen 325 MG Tab PO PRN (01:14)
[2021-03-17] MEDS ORDERED: Sodium Chloride 0.9% 1,000 ML IV SCH ×2 (01:14→10:30)
[2021-03-17] MEDS ORDERED: Morphine 2 MG/ML SYRINGE IVPUSH PRN (01:14)
[2021-03-17] MEDS ORDERED: LORazepam 2 MG/ML SDV IV PRN (01:14)
[2021-03-17] MEDS: Cefepime 1 GM Vial ONE (01:42)
[2021-03-17] MEDS: Melatonin 3 MG Tab PO PRN ×2 (01:43→22:18)
[2021-03-17] MEDS: diphenhydrAMINE 25 MG Cap PO PRN ×2 (01:43→22:18)
[2021-03-17] MEDS ORDERED: Ciprofloxacin in D5W 400 MG in Premix Bag 1 BAG IV SCH ×2 (02:00)
[2021-03-17] MEDS: metroNIDAZOLE/Normal Saline 500 MG in Premix Bag 1 BAG IV SCH ×2 (03:13→10:24)
[2021-03-17] MEDS: Pantoprazole 40 MG Tab.CR PO SCH (08:04)
[2021-03-17] MEDS ORDERED: Enoxaparin 40 MG/0.4 ML Syringe SUBCUT SCH (09:00)
--- NOTE | 2021-03-17 09:04 | CR ---
CHEST: Portable 03/16/2021 at 9:37 PM CLINICAL HISTORY:Sepsis COMPARISON:None FINDINGS: The heart size, pulmonary vascularity and hilar structures are normal. No infiltrate effusion or pneumothorax is seen. IMPRESSION: No acute cardiopulmonary process.
--- NOTE | 2021-03-17 10:23 | PCM.PN ---
- General Info Date of Service: 03/17/21 Subjective Update: No acute events overnight. Temperatures have improved. Still having watery diarrhea. Pain is better than last night. C. difficile testing was positive today. Not much of an appetite. Fluid intake has been minimal but better today than yesterday. Functional Status: Reports: Pain Controlled, Tolerating Diet - Review of Systems General: Denies: Fever Gastrointestinal: Reports: Diarrhea - Patient Data Vitals - Most Recent: Last Vital Signs Temp 36.7 C 03/17/21 08:04 Pulse 94 03/17/21 08:04 Resp 16 03/17/21 08:04 BP 123/63 03/17/21 08:04 Pulse Ox 95 03/17/21 08:04 Weight - Most Recent: 95.7 kg I&O - Last 24 Hours: Intake & Output 03/16/21 03/17/21 03/17/21 22:59 06:59 14:59 Intake Total 1200 Output Total 100 Balance 1100 Lab Results Last 24 Hours: Laboratory Results - last 24 hr 03/16/21 03/16/21 03/16/21 Range/Units 21:10 21:10 21:10 WBC 14.6 H (4.5-11.0) K/uL RBC 4.16 L (4.30-5.90) M/uL Hgb 13.5 (12.0-15.0) g/dL Hct 38.6 L (40.0-54.0) % MCV 93 (80-98) fL MCH 33 H (27-31) pg MCHC 35 (32-36) % Plt Count 172 (150-400) K/uL Neut % (Auto) 92.6 H (36-66) % Lymph % (Auto) 3.8 L (24-44) % [place] % (Auto) 3.5 (2-6) % Eos % (Auto) 0.0 L (2-4) % Baso % (Auto) 0.1 (0-1) % Sodium 136 L (140-148) mmol/L Potassium 3.5 L (3.6-5.2) mmol/L Chloride 102 (100-108) mmol/L Carbon Dioxide 22 (21-32) mmol/L Anion Gap 15.5 H (5.0-14.0) mmol/L BUN 21 H (7-18) mg/dL Creatinine 1.7 H (0.8-1.3) mg/dL Est Cr Clr Drug Dosing 57.44 mL/min Estimated GFR (MDRD) 41 L (>60) Glucose 125 H (74-106) mg/dL Lactic Acid 1.6 (0.4-2.0) mmol/L Calcium 8.4 L (8.5-10.1) mg/dL Total Bilirubin 1.5 H D (0.2-1.0) mg/dL AST 17 (15-37) U/L ALT 18 (12-78) U/L Alkaline Phosphatase 48 (46-116) U/L C-Reactive Protein 4.86 H (0.0-0.3) mg/dL Total Protein 6.4 (6.4-8.2) g/dL Albumin 3.3 L (3.4-5.0) g/dL Globulin 3.1 (2.3-3.5) g/dL Albumin/Globulin Ratio 1.1 L (1.2-2.2) Urine Color (YELLOW) Urine Appearance (CLEAR) Urine pH (5.0-8.0) Ur Specific [place] (1.008-1.030) Urine Protein (NEGATIVE) mg/dL Urine Glucose (UA) (NEGATIVE) mg/dL Urine Ketones (NEGATIVE) mg/dL Urine Occult Blood (NEGATIVE) Urine Nitrite (NEGATIVE) Urine Bilirubin (NEGATIVE) Urine Urobilinogen (0.2-1.0) EU/dL Ur Leukocyte Esterase (NEGATIVE) Urine RBC (0-5) Urine WBC (0-5) Ur Epithelial Cells Amorphous Sediment Urine Bacteria Urine Mucus Influenza Type A RNA (NEGATIVE) RSV RNA (INAAT) (NEGATIVE) Influenza Type B RNA (NEGATIVE) SARS-CoV-2 RNA (MAYE) (NEGATIVE) 03/16/21 03/16/21 03/17/21 Range/Units 21:21 21:41 04:30 WBC 14.5 H (4.5-11.0) K/uL RBC 3.88 L (4.30-5.90) M/uL Hgb 12.2 (12.0-15.0) g/dL Hct 35.9 L (40.0-54.0) % MCV 93 (80-98) fL MCH 31 (27-31) pg MCHC 34 (32-36) % Plt Count 169 (150-400) K/uL Neut % (Auto) 91.7 H (36-66) % Lymph % (Auto) 4.1 L (24-44) % [place] % (Auto) 4.1 (2-6) % Eos % (Auto) 0.0 L (2-4) % Baso % (Auto) 0.1 (0-1) % Sodium (140-148) mmol/L Potassium (3.6-5.2) mmol/L Chloride (100-108) mmol/L Carbon Dioxide (21-32) mmol/L Anion Gap (5.0-14.0) mmol/L BUN (7-18) mg/dL Creatinine (0.8-1.3) mg/dL Est Cr Clr Drug Dosing mL/min Estimated GFR (MDRD) (>60) Glucose (74-106) mg/dL Lactic Acid (0.4-2.0) mmol/L Calcium (8.5-10.1) mg/dL Total Bilirubin (0.2-1.0) mg/dL AST (15-37) U/L ALT (12-78) U/L Alkaline Phosphatase (46-116) U/L C-Reactive Protein (0.0-0.3) mg/dL Total Protein (6.4-8.2) g/dL Albumin (3.4-5.0) g/dL Globulin (2.3-3.5) g/dL Albumin/Globulin Ratio (1.2-2.2) Urine Color Yellow (YELLOW) Urine Appearance Cloudy A (CLEAR) Urine pH 5.5 (5.0-8.0) Ur Specific [place] <= 1.005 L (1.008-1.030) Urine Protein 100 H (NEGATIVE) mg/dL Urine Glucose (UA) Negative (NEGATIVE) mg/dL Urine Ketones Negative (NEGATIVE) mg/dL Urine Occult Blood Large H (NEGATIVE) Urine Nitrite Negative (NEGATIVE) Urine Bilirubin Negative (NEGATIVE) Urine Urobilinogen 0.2 (0.2-1.0) EU/dL Ur Leukocyte Esterase Negative (NEGATIVE) Urine RBC 30-40 H (0-5) Urine WBC 0-5 (0-5) Ur Epithelial Cells Few Amorphous Sediment Not seen Urine Bacteria Few Urine Mucus Not seen Influenza Type A RNA Negative (NEGATIVE) RSV RNA (INAAT) Negative (NEGATIVE) Influenza Type B RNA Negative (NEGATIVE) SARS-CoV-2 RNA (MAYE) Negative (NEGATIVE) 03/17/21 Range/Units 04:30 WBC (4.5-11.0) K/uL RBC (4.30-5.90) M/uL Hgb (12.0-15.0) g/dL Hct (40.0-54.0) % MCV (80-98) fL MCH (27-31) pg MCHC (32-36) % Plt Count (150-400) K/uL Neut % (Auto) (36-66) % Lymph % (Auto) (24-44) % [place] % (Auto) (2-6) % Eos % (Auto) (2-4) % Baso % (Auto) (0-1) % Sodium 135 L (140-148) mmol/L Potassium 3.9 (3.6-5.2) mmol/L Chloride 101 (100-108) mmol/L Carbon Dioxide 24 (21-32) mmol/L Anion Gap 13.9 (5.0-14.0) mmol/L BUN 22 H (7-18) mg/dL Creatinine 1.6 H (0.8-1.3) mg/dL Est Cr Clr Drug Dosing 61.03 mL/min Estimated GFR (MDRD) 44 L (>60) Glucose 109 H (74-106) mg/dL Lactic Acid (0.4-2.0) mmol/L Calcium 8.0 L (8.5-10.1) mg/dL Total Bilirubin (0.2-1.0) mg/dL AST (15-37) U/L ALT (12-78) U/L Alkaline Phosphatase (46-116) U/L C-Reactive Protein 9.69 H (0.0-0.3) mg/dL Total Protein (6.4-8.2) g/dL Albumin (3.4-5.0) g/dL Globulin (2.3-3.5) g/dL Albumin/Globulin Ratio (1.2-2.2) Urine Color (YELLOW) Urine Appearance (CLEAR) Urine pH (5.0-8.0) Ur Specific [place] (1.008-1.030) Urine Protein (NEGATIVE) mg/dL Urine Glucose (UA) (NEGATIVE) mg/dL Urine Ketones (NEGATIVE) mg/dL Urine Occult Blood (NEGATIVE) Urine Nitrite (NEGATIVE) Urine Bilirubin (NEGATIVE) Urine Urobilinogen (0.2-1.0) EU/dL Ur Leukocyte Esterase (NEGATIVE) Urine RBC (0-5) Urine WBC (0-5) Ur Epithelial Cells Amorphous Sediment Urine Bacteria Urine Mucus Influenza Type A RNA (NEGATIVE) RSV RNA (INAAT) (NEGATIVE) Influenza Type B RNA (NEGATIVE) SARS-CoV-2 RNA (MAYE) (NEGATIVE) Med Orders - Current: Current Medications Acetaminophen (Acetaminophen 325 Mg Tab) 650 mg PO Q4H PRN PRN Reason: Pain (Mild 1-3)/fever Albuterol (Albuterol 0.083% 2.5 Mg/3 Ml Neb Soln) 2.5 mg NEB Q4H PRN PRN Reason: Shortness Of Breath/wheezing Diphenhydramine HCl (Diphenhydramine 25 Mg Cap) 25 mg PO BEDTIME PRN PRN Reason: Insomnia Last Admin: 03/17/21 01:43 Dose: 25 mg Documented by: Ciprofloxacin/Dextrose 400 mg/ (Premix) 200 mls @ 200 mls/hr IV Q12H [facility] Last Admin: 03/17/21 01:39 Dose: 200 mls/hr Documented by: Metronidazole 500 mg/ Premix 100 mls @ 100 mls/hr IV Q8H [facility] Last Admin: 03/17/21 03:13 Dose: 100 mls/hr Documented by: Sodium Chloride (Normal Saline) 1,000 mls @ 75 mls/hr IV ASDIRECTED [facility] Lorazepam (Lorazepam 2 Mg/Ml Sdv) 1 mg IV Q6H PRN PRN Reason: Nausea/Vomiting Melatonin (Melatonin 3 Mg Tab) 6 mg PO BEDTIME PRN PRN Reason: Insomnia Last Admin: 03/17/21 01:43 Dose: 6 mg Documented by: Morphine Sulfate (Morphine 2 Mg/Ml Syringe) 2 mg IVPUSH Q2H PRN PRN Reason: Pain (severe 7-10) Ondansetron HCl (Ondansetron 4 Mg Tab.Dis) 4 mg PO Q6H PRN PRN Reason: Nausea able to take PO Ondansetron HCl (Ondansetron 4 Mg/2 Ml Sdv) 4 mg IV Q4H PRN PRN Reason: Nausea/Vomiting Last Admin: 03/17/21 05:24 Dose: 4 mg Documented by: Oxycodone HCl (Oxycodone 5 Mg Tab) 5 mg PO Q4H PRN PRN Reason: Pain (moderate 4-6) Pantoprazole Sodium (Pantoprazole 40 Mg Tab.Cr) 40 mg PO ACBREAKFAST [facility] Last Admin: 03/17/21 08:04 Dose: 40 mg Documented by: Sodium Chloride (Sodium Chloride 0.9% 10 Ml Syringe) 10 ml FLUSH ASDIRECTED PRN PRN Reason: Keep Vein Open Last Admin: 03/16/21 21:55 Dose: 10 ml Documented by: Discontinued Medications Cefepime HCl (Cefepime 1 Gm Vial) Confirm Administered Dose 2 gm .ROUTE .STK-MED ONE Stop: 03/16/21 23:27 Last Admin: 03/17/21 01:42 Dose: Not Given Documented by: Enoxaparin Sodium (Enoxaparin 40 Mg/0.4 Ml Syringe) 40 mg SUBCUT DAILY [facility] Last Admin: 03/17/21 08:04 Dose: 40 mg Documented by: Lactated Ringer's (Ringers, Lactated) 1,000 mls @ 999 mls/hr IV ASDIRECTED [facility] Last Admin: 03/16/21 21:38 Dose: 999 mls/hr Documented by: Sodium Chloride (Normal Saline) 80 mls @ 3 mls/sec IV ASDIRECTED [facility] Last Admin: 03/16/21 22:48 Dose: 3 mls/sec Documented by: Cefepime HCl 2 gm/ Sodium (Chloride) 50 mls @ 100 mls/hr IV ONETIME ONE Stop: 03/16/21 23:28 Last Admin: 03/16/21 23:59 Dose: 100 mls/hr Documented by: Sodium Chloride (Normal Saline) Confirm Administered Dose 50 mls @ as directed .ROUTE .STK-MED ONE Stop: 03/16/21 23:28 Last Admin: 03/17/21 01:27 Dose: Not Given Documented by: Lactated Ringer's (Ringers, Lactated) 1,000 mls @ 500 mls/hr IV ASDIRECTED [facility] Sodium Chloride (Normal Saline) 1,000 mls @ 125 mls/hr IV ASDIRECTED [facility] Last Admin: 03/17/21 01:45 Dose: 125 mls/hr Documented by: Ibuprofen (Ibuprofen 400 Mg Tab) 400 mg PO ONETIME ONE Stop: 03/16/21 22:57 Last Admin: 03/16/21 23:04 Dose: 400 mg Documented by: Iopamidol (Iopamidol 612 Mg/Ml 150 Ml Bottle) 146 ml IV . DIRECTED [facility] Last Admin: 03/16/21 22:48 Dose: 146 ml Documented by: Lorazepam (Lorazepam 1 Mg Tab) 1 mg PO ONETIME STA Stop: 03/17/21 00:44 Last Admin: 03/17/21 00:54 Dose: 1 mg Documented by: - Exam Quality Assessment: No: Supplemental Oxygen General: Alert, Oriented, Cooperative, No Acute Distress Lungs: Normal Respiratory Effort GI/Abdominal Exam: Soft, No Distention Extremities: No Pedal Edema Psy/Mental Status: Alert, Normal Affect - Patient Data Lab Results Last 24 hrs: Laboratory Results - last 24 hr 03/16/21 03/16/21 03/16/21 Range/Units 21:10 21:10 21:10 WBC 14.6 H (4.5-11.0) K/uL RBC 4.16 L (4.30-5.90) M/uL Hgb 13.5 (12.0-15.0) g/dL Hct 38.6 L (40.0-54.0) % MCV 93 (80-98) fL MCH 33 H (27-31) pg MCHC 35 (32-36) % Plt Count 172 (150-400) K/uL Neut % (Auto) 92.6 H (36-66) % Lymph % (Auto) 3.8 L (24-44) % [place] % (Auto) 3.5 (2-6) % Eos % (Auto) 0.0 L (2-4) % Baso % (Auto) 0.1 (0-1) % Sodium 136 L (140-148) mmol/L Potassium 3.5 L (3.6-5.2) mmol/L Chloride 102 (100-108) mmol/L Carbon Dioxide 22 (21-32) mmol/L Anion Gap 15.5 H (5.0-14.0) mmol/L BUN 21 H (7-18) mg/dL Creatinine 1.7 H (0.8-1.3) mg/dL Est Cr Clr Drug Dosing 57.44 mL/min Estimated GFR (MDRD) 41 L (>60) Glucose 125 H (74-106) mg/dL Lactic Acid 1.6 (0.4-2.0) mmol/L Calcium 8.4 L (8.5-10.1) mg/dL Total Bilirubin 1.5 H D (0.2-1.0) mg/dL AST 17 (15-37) U/L ALT 18 (12-78) U/L Alkaline Phosphatase 48 (46-116) U/L C-Reactive Protein 4.86 H (0.0-0.3) mg/dL Total Protein 6.4 (6.4-8.2) g/dL Albumin 3.3 L (3.4-5.0) g/dL Globulin 3.1 (2.3-3.5) g/dL Albumin/Globulin Ratio 1.1 L (1.2-2.2) Urine Color (YELLOW) Urine Appearance (CLEAR) Urine pH (5.0-8.0) Ur Specific [place] (1.008-1.030) Urine Protein (NEGATIVE) mg/dL Urine Glucose (UA) (NEGATIVE) mg/dL Urine Ketones (NEGATIVE) mg/dL Urine Occult Blood (NEGATIVE) Urine Nitrite (NEGATIVE) Urine Bilirubin (NEGATIVE) Urine Urobilinogen (0.2-1.0) EU/dL Ur Leukocyte Esterase (NEGATIVE) Urine RBC (0-5) Urine WBC (0-5) Ur Epithelial Cells Amorphous Sediment Urine Bacteria Urine Mucus Influenza Type A RNA (NEGATIVE) RSV RNA (INAAT) (NEGATIVE) Influenza Type B RNA (NEGATIVE) SARS-CoV-2 RNA (MAYE) (NEGATIVE) 03/16/21 03/16/21 03/17/21 Range/Units 21:21 21:41 04:30 WBC 14.5 H (4.5-11.0) K/uL RBC 3.88 L (4.30-5.90) M/uL Hgb 12.2 (12.0-15.0) g/dL Hct 35.9 L (40.0-54.0) % MCV 93 (80-98) fL MCH 31 (27-31) pg MCHC 34 (32-36) % Plt Count 169 (150-400) K/uL Neut % (Auto) 91.7 H (36-66) % Lymph % (Auto) 4.1 L (24-44) % [place] % (Auto) 4.1 (2-6) % Eos % (Auto) 0.0 L (2-4) % Baso % (Auto) 0.1 (0-1) % Sodium (140-148) mmol/L Potassium (3.6-5.2) mmol/L Chloride (100-108) mmol/L Carbon Dioxide (21-32) mmol/L Anion Gap (5.0-14.0) mmol/L BUN (7-18) mg/dL Creatinine (0.8-1.3) mg/dL Est Cr Clr Drug Dosing mL/min Estimated GFR (MDRD) (>60) Glucose (74-106) mg/dL Lactic Acid (0.4-2.0) mmol/L Calcium (8.5-10.1) mg/dL Total Bilirubin (0.2-1.0) mg/dL AST (15-37) U/L ALT (12-78) U/L Alkaline Phosphatase (46-116) U/L C-Reactive Protein (0.0-0.3) mg/dL Total Protein (6.4-8.2) g/dL Albumin (3.4-5.0) g/dL Globulin (2.3-3.5) g/dL Albumin/Globulin Ratio (1.2-2.2) Urine Color Yellow (YELLOW) Urine Appearance Cloudy A (CLEAR) Urine pH 5.5 (5.0-8.0) Ur Specific [place] <= 1.005 L (1.008-1.030) Urine Protein 100 H (NEGATIVE) mg/dL Urine Glucose (UA) Negative (NEGATIVE) mg/dL Urine Ketones Negative (NEGATIVE) mg/dL Urine Occult Blood Large H (NEGATIVE) Urine Nitrite Negative (NEGATIVE) Urine Bilirubin Negative (NEGATIVE) Urine Urobilinogen 0.2 (0.2-1.0) EU/dL Ur Leukocyte Esterase Negative (NEGATIVE) Urine RBC 30-40 H (0-5) Urine WBC 0-5 (0-5) Ur Epithelial Cells Few Amorphous Sediment Not seen Urine Bacteria Few Urine Mucus Not seen Influenza Type A RNA Negative (NEGATIVE) RSV RNA (INAAT) Negative (NEGATIVE) Influenza Type B RNA Negative (NEGATIVE) SARS-CoV-2 RNA (MAYE) Negative (NEGATIVE) 03/17/21 Range/Units 04:30 WBC (4.5-11.0) K/uL RBC (4.30-5.90) M/uL Hgb (12.0-15.0) g/dL Hct (40.0-54.0) % MCV (80-98) fL MCH (27-31) pg MCHC (32-36) % Plt Count (150-400) K/uL Neut % (Auto) (36-66) % Lymph % (Auto) (24-44) % [place] % (Auto) (2-6) % Eos % (Auto) (2-4) % Baso % (Auto) (0-1) % Sodium 135 L (140-148) mmol/L Potassium 3.9 (3.6-5.2) mmol/L Chloride 101 (100-108) mmol/L Carbon Dioxide 24 (21-32) mmol/L Anion Gap 13.9 (5.0-14.0) mmol/L BUN 22 H (7-18) mg/dL Creatinine 1.6 H (0.8-1.3) mg/dL Est Cr Clr Drug Dosing 61.03 mL/min Estimated GFR (MDRD) 44 L (>60) Glucose 109 H (74-106) mg/dL Lactic Acid (0.4-2.0) mmol/L Calcium 8.0 L (8.5-10.1) mg/dL Total Bilirubin (0.2-1.0) mg/dL AST (15-37) U/L ALT (12-78) U/L Alkaline Phosphatase (46-116) U/L C-Reactive Protein 9.69 H (0.0-0.3) mg/dL Total Protein (6.4-8.2) g/dL Albumin (3.4-5.0) g/dL Globulin (2.3-3.5) g/dL Albumin/Globulin Ratio (1.2-2.2) Urine Color (YELLOW) Urine Appearance (CLEAR) Urine pH (5.0-8.0) Ur Specific [place] (1.008-1.030) Urine Protein (NEGATIVE) mg/dL Urine Glucose (UA) (NEGATIVE) mg/dL Urine Ketones (NEGATIVE) mg/dL Urine Occult Blood (NEGATIVE) Urine Nitrite (NEGATIVE) Urine Bilirubin (NEGATIVE) Urine Urobilinogen (0.2-1.0) EU/dL Ur Leukocyte Esterase (NEGATIVE) Urine RBC (0-5) Urine WBC (0-5) Ur Epithelial Cells Amorphous Sediment Urine Bacteria Urine Mucus Influenza Type A RNA (NEGATIVE) RSV RNA (INAAT) (NEGATIVE) Influenza Type B RNA (NEGATIVE) SARS-CoV-2 RNA (MAYE) (NEGATIVE) Result Diagrams: 03/17/21 04:30 03/17/21 04:30 Sepsis Event Note - Evaluation Sepsis Screening Result: Sepsis Risk - Focused Exam Vital Signs: Vital Signs Temp Temp Pulse Resp BP Pulse Ox 03/17/21 08:04 36.7 C 94 16 123/63 95 03/17/21 06:48 36.6 C 03/17/21 05:14 37.8 C 88 16 109/65 94 L 03/17/21 01:14 97 03/17/21 01:13 37.6 C 96 18 122/78 97 03/16/21 23:25 37.1 C 03/16/21 23:21 96 100/53 L 97 03/16/21 23:06 96 20 115/71 99 - Problem List Review Problem List Initiated/Reviewed/Updated: Yes - My Orders Last 24 Hours: My Active Orders 03/17/21 08:13 CDiff [CLOS DIFFICILE PCR W/REFLEX] [RM] Routine 03/17/21 10:22 Cardiac Monitoring Discontinue [RC] Click to Edit 03/17/21 10:30 Sodium Chloride 0.9% [Normal Saline] 1,000 ml IV ASDIRECTED 03/18/21 05:00 BASIC METABOLIC PANEL,BMP [CHEM] Timed CBC W/O DIFF,HEMOGRAM [HEME] Timed (1) - Plan Plan:: Assessment and Plan - C. difficile colitis-antibiotic exposure 1 week prior to symptoms. He did test positive for C. difficile but the toxin testing was negative. Despite the nega tive toxin I think this represents an acute infection when combined with symptoms recent antibiotics pusher and CT scan findings. -Continue gentle fluids -Discontinue IV antibiotics -Medication for pain and nausea -Oral vancomycin x14 days -I&0 -Follow-up blood cultures -Isolation precautions with C. difficile infection History of Urinary Retention -doing well since Woody catheter removed a few days prior to admission. UA had some hematuria but no evidence for infection. -monitor I&O History of Prostate biopsy 7 days ago-no evidence for prostate cancer based on biopsies. -Outpatient follow-up MAINTENANCE ISSUES -DVT Prophylaxis patient is ambulatory -GI prophylaxis- Protonix as above -Woody catheter not indicated -Nutrition regular diet ADMISSION This patient will be admitted to observation status, expect no more than one night hospital stay for evaluation and management of problems outline above. DISPOSITION anticipate discharge to home after the hospital stay. Kalin Bailey MD
[2021-03-17] MEDS: Vancomycin 125 MG Cap PO SCH ×2 (15:44→22:18)
[2021-03-18] MEDS: Vancomycin 125 MG Cap PO SCH (05:26)
[2021-03-18] MEDS: Pantoprazole 40 MG Tab.CR PO SCH (07:31)
--- NOTE | 2021-03-18 10:48 | PCM.DCSUM1 ---
Discharge Summary - Hospital Course Brief History: 60-year-old male with prostate biopsy 1 week ago who presented with acute onset of nausea, vomiting and severe diarrhea. He was admitted for management of colitis that was presumed to be infectious. Diagnosis: Stroke: No - Discharge Data Discharge Date: 03/18/21 Discharge Disposition: Home, Self-Care 01 Condition: Good - Referral to Home Health Primary Care Physician: Pipe Harp MD - Discharge Diagnosis/Problem(s) (1) Clostridium difficile colitis SNOMED Code(s): 184063070 ICD Code: A04.72 - ENTEROCOLITIS D/T CLOSTRIDIUM DIFFICILE, NOT SPCF RECUR Status: Acute (2) History of prostate biopsy SNOMED Code(s): 637558179, 664075823 ICD Code: Z98.890 - OTHER SPECIFIED POSTPROCEDURAL STATES Status: Acute Priority: High - Patient Summary/Data Consults: Consultations 03/17/21 00:45 Spiritual Care Follow Up [CONS] Routine Spiritual Resources: Other (See Spec Instr) Spiritual/Emotional Support: Prayer Request Hospital Course: Kwasi presented to the emergency room with acute onset of nausea with vomiting as well as some abdominal pain and significant diarrhea about 1 week after antibiotic therapy around the time of a prostate biopsy. Work-up in the emergency room revealed fever, leukocytosis and CT scan showed evidence for colitis. Initially the concern was for a general bacterial colitis. Stool cultures were obtained and he was admitted for IV antibiotic therapy to manage the colitis. With the recent antibiotics I felt it was prudent to test for C. difficile and this did return positive though the toxin was negative. Given his clinical picture that is very compatible with C. difficile colitis we elected to treat with oral vancomycin. The day after this therapy was started we saw improvement in his white count as well as his fever curve. His diarrhea has slowed some but has not resolved at the time of discharge. He has not had any abdominal pain. He does not have much of an appetite but is eating better. He feels comfortable going home with his improvement. The plan is for him to be on antibiotics for a total of 14 days. He will take the next several days off of work and hopefully return to work on March 23 assuming his diarrhea has resolved. He has not had a fever in more than 24 hours. - Patient Instructions Diet: Regular Diet as Tolerated Activity: As Tolerated Showering/Bathing: May Shower Notify Provider of: Fever, Increased Pain Other/Special Instructions: 1. You were in the hospital for management of diarrhea caused by C. difficile. I recommend ongoing antibiotic therapy with oral vancomycin. Please take 125 mg 4 times daily for 13 days. I would encourage you to utilize 1 bathroom to keep the potential shedding of this bacteria to a minimum. Wash your hands with soap and water after every trip to the bathroom as alcohol hand corporate communications specialist will not kill the spores produced by the bacteria. Once your diarrhea has resolved you should thoroughly clean the hard surfaces of the bathroom with a bleach condenser cleaner. I would encourage you to stay home from work until the diarrhea has resolved but I would anticipate you can return to work next Tuesday without any restrictions. 2. Continue usual home medications with the exception of the ciprofloxacin which should be discontinued. - Discharge Plan *PRESCRIPTION DRUG MONITORING PROGRAM REVIEWED*: Not Applicable *COPY OF PRESCRIPTION DRUG MONITORING REPORT IN PATIENT REMA: Not Applicable Prescriptions/Med Rec: Vancomycin [Vancocin 125 MG Capsule] 125 mg PO QID #52 cap Home Medications: Home Meds atorvaSTATin [Lipitor] 20 mg PO DAILY 08/18/17 [History] Tamsulosin HCl [Flomax] 0.4 mg PO 03/17/21 [History] Vancomycin [Vancocin 125 MG Capsule] 125 mg PO QID #52 cap 03/18/21 [Rx] Oxygen Therapy Mode: Room Air Patient Handouts: Fall Prevention in the Home, Adult, [id number], Clostridioides Difficile Infection, Vancomycin capsules Referrals: Pipe Harp MD [Primary Care Provider] - 03/26/21 10:00 am (Please arrive 15 minutes early to register for appointment.) - Discharge Summary/Plan Comment DC Time >30 min.: No Total # of Minutes for Discharge Time: 25 - Patient Data Vitals - Most Recent: Last Vital Signs Temp 35.8 C L 03/18/21 07:32 Pulse 69 03/18/21 07:32 Resp 16 03/18/21 07:32 BP 140/68 03/18/21 07:32 Pulse Ox 91 L 03/18/21 07:32 Weight - Most Recent: 95.7 kg Lab Results - Last 24 hrs: Laboratory Results - last 24 hr 03/18/21 03/18/21 Range/Units 06:29 06:29 WBC 10.7 (4.5-11.0) K/uL RBC 3.53 L (4.30-5.90) M/uL Hgb 11.2 L (12.0-15.0) g/dL Hct 33.4 L (40.0-54.0) % MCV 95 (80-98) fL MCH 32 H (27-31) pg MCHC 34 (32-36) % Plt Count 161 (150-400) K/uL Sodium 139 L (140-148) mmol/L Potassium 3.6 (3.6-5.2) mmol/L Chloride 106 (100-108) mmol/L Carbon Dioxide 26 (21-32) mmol/L Anion Gap 10.6 (5.0-14.0) mmol/L BUN 17 (7-18) mg/dL Creatinine 1.5 H (0.8-1.3) mg/dL Est Cr Clr Drug Dosing 65.10 mL/min Estimated GFR (MDRD) 48 L (>60) Glucose 101 (74-106) mg/dL Calcium 8.0 L (8.5-10.1) mg/dL ISAMAR Results - Last 24 hrs: Microbiology 03/16/21 23:44 Stool Culture - Preliminary Stool / Feces Shiga Toxin I - Final NEGATIVE FOR SHIGA TOXIN 1 Shiga Toxin II - Final NEGATIVE FOR SHIGA TOXIN 2 REFERENCE RANGE: NEGATIVE 03/16/21 21:21 Urine Culture - Preliminary Urine, Voided NO GROWTH AFTER 1 DAY 03/16/21 21:35 Aerobic Blood Culture - Preliminary Blood - Arm, Left NO GROWTH AFTER 1 DAY Anaerobic Blood Culture - Preliminary NO GROWTH AFTER 1 DAY 03/16/21 21:10 Aerobic Blood Culture - Preliminary Blood - Arm, Right NO GROWTH AFTER 1 DAY Anaerobic Blood Culture - Preliminary NO GROWTH AFTER 1 DAY 03/17/21 08:13 Clostridioides difficile Toxin Assay - Final Stool / Feces - Stool, Liquid Clostridioides difficile (PCR) - Final Med Orders - Current: Current Medications Acetaminophen (Acetaminophen 325 Mg Tab) 650 mg PO Q4H PRN PRN Reason: Pain (Mild 1-3)/fever Albuterol (Albuterol 0.083% 2.5 Mg/3 Ml Neb Soln) 2.5 mg NEB Q4H PRN PRN Reason: Shortness Of Breath/wheezing Diphenhydramine HCl (Diphenhydramine 25 Mg Cap) 25 mg PO BEDTIME PRN PRN Reason: Insomnia Last Admin: 03/17/21 22:18 Dose: 25 mg Documented by: Sodium Chloride (Normal Saline) 1,000 mls @ 75 mls/hr IV ASDIRECTED [facility] Lorazepam (Lorazepam 2 Mg/Ml Sdv) 1 mg IV Q6H PRN PRN Reason: Nausea/Vomiting Melatonin (Melatonin 3 Mg Tab) 6 mg PO BEDTIME PRN PRN Reason: Insomnia Last Admin: 03/17/21 22:18 Dose: 6 mg Documented by: Morphine Sulfate (Morphine 2 Mg/Ml Syringe) 2 mg IVPUSH Q2H PRN PRN Reason: Pain (severe 7-10) Ondansetron HCl (Ondansetron 4 Mg Tab.Dis) 4 mg PO Q6H PRN PRN Reason: Nausea able to take PO Ondansetron HCl (Ondansetron 4 Mg/2 Ml Sdv) 4 mg IV Q4H PRN PRN Reason: Nausea/Vomiting Last Admin: 03/17/21 05:24 Dose: 4 mg Documented by: Oxycodone HCl (Oxycodone 5 Mg Tab) 5 mg PO Q4H PRN PRN Reason: Pain (moderate 4-6) Pantoprazole Sodium (Pantoprazole 40 Mg Tab.Cr) 40 mg PO ACBREAKFAST [facility] Last Admin: 03/18/21 07:31 Dose: 40 mg Documented by: Sodium Chloride (Sodium Chloride 0.9% 10 Ml Syringe) 10 ml FLUSH ASDIRECTED PRN PRN Reason: Keep Vein Open Last Admin: 03/16/21 21:55 Dose: 10 ml Documented by: Vancomycin HCl (Vancomycin 125 Mg Cap) 125 mg PO QID [facility] Last Admin: 03/17/21 22:18 Dose: 125 mg Documented by: Discontinued Medications Cefepime HCl (Cefepime 1 Gm Vial) Confirm Administered Dose 2 gm .ROUTE .[facility] ONE Stop: 03/16/21 23:27 Last Admin: 03/17/21 01:42 Dose: Not Given Documented by: Enoxaparin Sodium (Enoxaparin 40 Mg/0.4 Ml Syringe) 40 mg SUBCUT DAILY [facility] Last Admin: 03/17/21 08:04 Dose: 40 mg Documented by: Lactated Ringer's (Ringers, Lactated) 1,000 mls @ 999 mls/hr IV ASDIRECTED [facility] Last Admin: 03/16/21 21:38 Dose: 999 mls/hr Documented by: Sodium Chloride (Normal Saline) 80 mls @ 3 mls/sec IV ASDIRECTED [facility] Last Admin: 03/16/21 22:48 Dose: 3 mls/sec Documented by: Cefepime HCl 2 gm/ Sodium (Chloride) 50 mls @ 100 mls/hr IV ONETIME ONE Stop: 03/16/21 23:28 Last Admin: 03/16/21 23:59 Dose: 100 mls/hr Documented by: Sodium Chloride (Normal Saline) Confirm Administered Dose 50 mls @ as directed .ROUTE .[facility] ONE Stop: 03/16/21 23:28 Last Admin: 03/17/21 01:27 Dose: Not Given Documented by: Lactated Ringer's (Ringers, Lactated) 1,000 mls @ 500 mls/hr IV [facility]IRECTED [facility] Ciprofloxacin/Dextrose 400 mg/ (Premix) 200 mls @ 200 mls/hr IV Q12H [facility] Last Admin: 03/17/21 01:39 Dose: 200 mls/hr Documented by: Sodium Chloride (Normal Saline) 1,000 mls @ 125 mls/hr IV ASDIRECTED [facility] Last Admin: 03/17/21 01:45 Dose: 125 mls/hr Documented by: Metronidazole 500 mg/ Premix 100 mls @ 100 mls/hr IV Q8H [facility] Last Admin: 03/17/21 10:24 Dose: 100 mls/hr Documented by: Ibuprofen (Ibuprofen 400 Mg Tab) 400 mg PO ONETIME ONE Stop: 03/16/21 22:57 Last Admin: 03/16/21 23:04 Dose: 400 mg Documented by: Iopamidol (Iopamidol 612 Mg/Ml 150 Ml Bottle) 146 ml IV . [facility]ED [facility] Last Admin: 03/16/21 22:48 Dose: 146 ml Documented by: Lorazepam (Lorazepam 1 Mg Tab) 1 mg PO ONETIME STA Stop: 03/17/21 00:44 Last Admin: 03/17/21 00:54 Dose: 1 mg Documented by:
== END 2021-03-18 12:05 | disposition home or self-care (01) ==
LOC: JP.ED 20:44 → JP.MS 03-17 00:10
PROVIDERS: ADMIT Internal Medicine; ATTEND Internal Medicine
DX: A04.72 Enterocolitis due to Clostridium difficile, not specified as recurrent (principal); D72.829 Elevated white blood cell count, unspecified; E78.00 Pure hypercholesterolemia, unspecified; Z98.890 Other specified postprocedural states; Z79.899 Other long term (current) drug therapy; Z20.822 Contact with and (suspected) exposure to COVID-19
CPT/HCPCS: 0241U; 36415; 71045; 71045-26; 74177; 80048; 80053; 81001; 83605; 85025; 85027; 86140; 87040; 87046; 87086; 87493; 87899; 96365; 96366; 96367; 96372; 96375; 99217; 99219; 99225; 99285-25; A9270-GY; G0378; J0692; J0744; J1650; J2405; J3490; J7030; J7120; Q9967

== ENCOUNTER 2023-04-25 08:03 | Day surgery (SDC) | payer SELFPAY ==
[2023-04-25] MEDS ORDERED: Lactated Ringers 1,000 ML IV SCH (09:00)
[2023-04-25] MEDS ORDERED: fentaNYL 50 MCG/ML SDV ONE (09:52)
[2023-04-25] MEDS ORDERED: Midazolam 1 MG/ML 2 ML SDV ONE (09:52)
[2023-04-25] MEDS ORDERED: Propofol 200 MG/20 ML SDV ONE ×2 (09:52→10:11)
== END 2023-04-25 11:45 | disposition home or self-care (01) ==
LOC: JP.SDS 08:03
PROVIDERS: ATTEND Student in an Organized Health Care Education/Training Program
DX: Z12.11 Encounter for screening for malignant neoplasm of colon (principal); K57.30 Diverticulosis of large intestine without perforation or abscess without bleeding
CPT/HCPCS: 45378; J2250; J2704; J3010; J7120